=== PATIENT | male | born 1955 | race African-American/Black ===

== ENCOUNTER 2025-01-01 02:11 | Emergency (ER) | payer MEDICAID ==
[~2025-01-01] VITALS: Ht 188 cm; Wt 72.4 kg
[2025-01-01 02:22] VITALS: BP 151/93; TEMP 37.1; O2SAT 99
[2025-01-01 02:24] VITALS: PULSE 94; RESP 20; O2SAT 100
[2025-01-01] MEDS: LIDOCAINE 5% PATCH TOP SCH (03:45)
[2025-01-01] MEDS: ACETAMINOPHEN 325MG TABLET PO ONE (04:11)
[2025-01-01] MEDS ORDERED: LIDO-53 TP (04:41)
[2025-01-01] MEDS ORDERED: NAPR-1176 MT (04:41)
== END 2025-01-01 06:15 | disposition home or self-care (01) ==
LOC: ER 02:11
DX: M79.605 Pain in left leg (principal); E11.9 Type 2 diabetes mellitus without complications; Z79.1 Long term (current) use of non-steroidal anti-inflammatories (NSAID)
CPT/HCPCS: 82962; 93971; 99284